=== PATIENT | male | born 1975 | race Caucasian/White ===

== ENCOUNTER 2022-12-11 16:09 | Inpatient (IN) | payer OTHER, SELFPAY ==
[~2022-12-11 16:09] MED LIST: Iopamidol 370 76% 100 ML VIAL ONE
[2022-12-11] MEDS ORDERED: Heparin 10,000 UNITS/ 10 ML VIAL ONE (16:13)
[2022-12-11] MEDS ORDERED: Heparin 25,000 UNITS/D5W 500 ml bag ONE (16:25)
[2022-12-11 16:27] LABS: #Eosinphils 0.1 thou/uL (0.0-0.7); #Monocytes 0.6 thou/uL (0.11-0.59); #Neutrophils 5.7 thou/uL (1.40-6.50); %Basophils 0.4 % (0.0-1.0); %Eosinophils 0.9 % (0.0-10.0); %Lymphocytes 33.6 % (21.0-51.0); %Monocytes 6.5 % (0.0-10.0); %Neutrophils 58.2 % (42.0-75.0); Hemoglobin 14.5 g/dL (14.0-18.0); Mean Corpuscular HGB CONC 34.9 g/dL (32.0-36.0); Mean Corpuscular Hemoglobin 29.8 pg (27.0-31.0); Mean Corpuscular Volume 85.4 fl (78.0-98.0); Platelet Count 154 10x3/uL (130-400); RBC Distribution Width 12.4 % (11.5-14.5); Red Blood Cell (RBC) Count 4.87 mill/uL (4.70-6.10); White Blood Cell (WBC) Count 9.7 10x3/uL (4.8-10.8)
[2022-12-11] MEDS ORDERED: Ondansetron PF 4 MG/2 ML Vial ONE (16:33)
[2022-12-11] MEDS ORDERED: Atropine Sulfate 1 mg/10 ml Syringe ONE (16:33)
[2022-12-11 16:40] LABS: INR-International Normal Ratio 1.1; PTT 25.3 sec (22.9-36.1); Prothrombin Time 14.3 sec (12.0-14.7)
[2022-12-11] MEDS ORDERED: PHENYLEPHRINE-NS 100 MCG/ML 10 ML SYRINGE ONE (16:42)
[2022-12-11] MEDS ORDERED: TICAGRELOR 90 MG TABLET ONE (16:48)
[2022-12-11 16:53] LABS: ALT (SGPT) 47 U/L (8-55); AST (SGOT) 40 U/L (5-34); Albumin 4.2 g/dL (3.5-5.0); Alkaline Phosphatase 73 U/L (40-110); Anion Gap 3 mmol/L (10-20); BUN (Urea Nitrogen) 12 mg/dL (8.9-20.6); Bilirubin, Total 0.4 mg/dL (0.2-1.2); Calc. Creatinine Clearance 0 mL/min (70-130); Calcium 8.5 mg/dL (7.8-10.44); Carbon Dioxide 22 mmol/L (22-29); Chloride 111 mmol/L (98-107); Estimated GFR 97; Globulin 2.9 g/dL (2.4-3.5); Glucose 314 mg/dL (70-105); Potassium 3.7 mmol/L (3.5-5.1); Protein, Total 7.1 g/dL (6.0-8.3); Sodium 132 mmol/L (136-145)
[2022-12-11] MEDS ORDERED: Tirofiban-0.9% Sodium Chloride 250 ML ONE (17:02)
[2022-12-11 18:45] LABS: Acetaminophen Less than 10 mcg/mL (10.0-30.0); Alcohol Less than 10.0 mg/dL (Less than 10); Salicylate Less than 8.0 mg/dL (15.0-30.0)
[2022-12-11 18:50] VITALS: BMI 27.2
[2022-12-11] MEDS ORDERED: Morphine 4 MG/ML VIAL SLOW IVP PRN (18:53)
[2022-12-11] MEDS ORDERED: Morphine 2 MG/ML VIAL SLOW IVP PRN (18:53)
[2022-12-11] MEDS ORDERED: Sodium Chloride 0.9% 1,000 ML IV SCH (18:53)
[2022-12-11] MEDS ORDERED: Nitroglycerin 0.4 MG TAB (25 Tab Bottle) SL PRN (18:53)
[2022-12-11] MEDS ORDERED: Tirofiban-0.9% Sodium Chloride 250 ML IVPB SCH (18:53)
[2022-12-11] MEDS ORDERED: DOPamine 400 MG/D5W 250 ML 250 ML IVPB SCH (19:00)
[2022-12-11] MEDS ORDERED: Glucagon 1 MG/ML KIT IM PRN (19:24)
[2022-12-11] MEDS ORDERED: Dextrose 50% Abboject 50 ML SYRINGE SLOW IVP PRN (19:24)
[2022-12-11] MEDS ORDERED: Dextrose 5% in Water 1,000 ML IV PRN (19:24)
[2022-12-11] MEDS ORDERED: Electrolyte Replacement Protocol 1 EACH FS ONE (19:41)
[2022-12-11] MEDS ORDERED: Electrolyte Replacement Protocol FS PRN (19:45)
[2022-12-11 21:08] LABS: Troponin I 34.364 ng/mL (< 0.028)
[2022-12-11] MEDS: HumaLOG 300 UNITS/3 ML VIAL SC PRN (21:48)
[2022-12-12 01:52] LABS: Troponin I 82.669 ng/mL (< 0.028)
[2022-12-12 03:41] LABS: Amphetamine Not Detected (NotDetected); Barbiturates Screen Not Detected (NotDetected); Benzodiazepine Screen Not Detected (NotDetected); Cocaine Metabolite Screen Not Detected (NotDetected); Methadone Not Detected (NotDetected); Methamphetamine Detected (NotDetected); Opiate Screen Not Detected (NotDetected); Oxycodone Screen Not Detected (NotDetected); Phencyclidine (PCP) Not Detected (NotDetected); THC/Cannabinoid Screen Not Detected (NotDetected); Tricyclic Screen Not Detected (NotDetected)
[2022-12-12 04:21] LABS: #Monocytes 0.5 thou/uL (0.11-0.59); #Neutrophils 7.1 thou/uL (1.40-6.50); %Basophils 0.3 % (0.0-1.0); %Eosinophils 0.1 % (0.0-10.0); %Lymphocytes 18.3 % (21.0-51.0); %Monocytes 5.6 % (0.0-10.0); %Neutrophils 75.2 % (42.0-75.0); Hemoglobin 14.3 g/dL (14.0-18.0); Mean Corpuscular HGB CONC 34.1 g/dL (32.0-36.0); Mean Corpuscular Volume 87.8 fl (78.0-98.0); Mean Platelet Volume 12.1 fL (7.4-10.4); Platelet Count 151 10x3/uL (130-400); RBC Distribution Width 12.6 % (11.5-14.5); Red Blood Cell (RBC) Count 4.77 mill/uL (4.70-6.10); White Blood Cell (WBC) Count 9.5 10x3/uL (4.8-10.8)
[2022-12-12 04:28] LABS: Hemoglobin A1c 10.6 % (4.0-6.0)
[2022-12-12 04:50] LABS: ALT (SGPT) 56 U/L (8-55); AST (SGOT) 181 U/L (5-34); Albumin 3.9 g/dL (3.5-5.0); Alkaline Phosphatase 71 U/L (40-110); Anion Gap 16 mmol/L (10-20); BUN (Urea Nitrogen) 10 mg/dL (8.9-20.6); Bilirubin, Total 0.5 mg/dL (0.2-1.2); Calc. Creatinine Clearance 154 mL/min (70-130); Calcium 8.1 mg/dL (7.8-10.44); Carbon Dioxide 19 mmol/L (22-29); Cardiac Risk 3.7 (Less than 4.5); Chloride 107 mmol/L (98-107); Cholesterol 123 mg/dl (< 200 Desired); Estimated GFR 112; Globulin 2.7 g/dL (2.4-3.5); Glucose 212 mg/dL (70-105); HDL Cholesterol 33 mg/dL (>60 Neg Risk); LDL Cholesterol, Calculated 52 mg/dL; Magnesium 1.9 mg/dL (1.6-2.6); Potassium 3.5 mmol/L (3.5-5.1); Protein, Total 6.6 g/dL (6.0-8.3); Sodium 138 mmol/L (136-145); Triglycerides 191 mg/dL (Less than 150)
[2022-12-12] MEDS: HumaLOG 300 UNITS/3 ML VIAL SC PRN ×3 (05:08→16:58)
[2022-12-12] MEDS ORDERED: Potassium Chloride 20 MEQ TAB PO SCH (08:00)
[2022-12-12 09:44] LABS: Critical Call Chem Troponin I RESULT DECREASING; Troponin I 43.805 ng/mL (< 0.028)
[2022-12-12] MEDS: Clopidogrel Bisulfate 75 MG TAB PO SCH (10:44)
[2022-12-12] MEDS: Aspirin Chewable 81 MG TAB PO SCH (10:44)
[2022-12-12 15:54] LABS: Potassium 3.7 mmol/L (3.5-5.1)
[2022-12-12] MEDS ORDERED: Communication Order-Pharmacy FS SCH (19:30)
[2022-12-12] MEDS: Rosuvastatin 20 MG TAB PO SCH (22:08)
[2022-12-13] MEDS: HumaLOG 300 UNITS/3 ML VIAL SC PRN (00:22)
[2022-12-13 04:52] LABS: ALT (SGPT) 40 U/L (8-55); AST (SGOT) 60 U/L (5-34); Albumin 3.5 g/dL (3.5-5.0); Alkaline Phosphatase 67 U/L (40-110); Anion Gap 11 mmol/L (10-20); BUN (Urea Nitrogen) 17 mg/dL (8.9-20.6); Bilirubin, Total 0.4 mg/dL (0.2-1.2); Calc. Creatinine Clearance 139 mL/min (70-130); Calcium 8.4 mg/dL (7.8-10.44); Carbon Dioxide 21 mmol/L (22-29); Chloride 107 mmol/L (98-107); Estimated GFR 109; Globulin 2.5 g/dL (2.4-3.5); Glucose 287 mg/dL (70-105); Potassium 3.8 mmol/L (3.5-5.1); Sodium 135 mmol/L (136-145)
[2022-12-13] MEDS ORDERED: Sodium Chloride 0.9% 1,000 ML IV SCH ×2 (06:00→09:53)
[2022-12-13] MEDS ORDERED: Lidocaine 1% (PF) 30 ML VIAL ONE (07:52)
[2022-12-13] MEDS ORDERED: Heparin 10,000 UNITS/ 10 ML VIAL ONE (07:52)
[2022-12-13] MEDS ORDERED: Midazolam HCl 2 mg/2 ml Vial ONE (07:54)
[2022-12-13] MEDS ORDERED: fentaNYL 50 mcg/mL 1 mL Vial ONE (07:55)
[2022-12-13] MEDS ORDERED: Bivalirudin 250 MG VIAL ONE (08:59)
[2022-12-13] MEDS: Clopidogrel Bisulfate 75 MG TAB PO SCH ×2 (09:26→10:51)
[2022-12-13] MEDS: Aspirin Chewable 81 MG TAB PO SCH (09:26)
[2022-12-13] MEDS ORDERED: Clopidogrel Bisulfate 75 MG TAB ONE (09:28)
[2022-12-13] MEDS ORDERED: Iopamidol 370 76% 100 ML VIAL ONE (09:59)
[2022-12-13] MEDS ORDERED: Morphine 4 MG/ML VIAL ONE (12:57)
[2022-12-13] MEDS ORDERED: Insulin Regular 300 UNITS/3 ML VIAL SC PRN ×2 (18:00)
[2022-12-13] MEDS: Rosuvastatin 20 MG TAB PO SCH (21:24)
[2022-12-14 05:13] LABS: #Eosinphils 0.2 thou/uL (0.0-0.7); #Monocytes 0.7 thou/uL (0.11-0.59); #Neutrophils 4.6 thou/uL (1.40-6.50); %Basophils 0.3 % (0.0-1.0); %Eosinophils 1.7 % (0.0-10.0); %Monocytes 7.4 % (0.0-10.0); %Neutrophils 49.2 % (42.0-75.0); Hemoglobin 12.5 g/dL (14.0-18.0); Mean Corpuscular HGB CONC 34.1 g/dL (32.0-36.0); Mean Corpuscular Hemoglobin 29.8 pg (27.0-31.0); Mean Corpuscular Volume 87.6 fl (78.0-98.0); Mean Platelet Volume 11.7 fL (7.4-10.4); Platelet Count 145 10x3/uL (130-400); RBC Distribution Width 12.6 % (11.5-14.5); Red Blood Cell (RBC) Count 4.19 mill/uL (4.70-6.10); White Blood Cell (WBC) Count 9.3 10x3/uL (4.8-10.8)
[2022-12-14 05:38] LABS: ALT (SGPT) 32 U/L (8-55); AST (SGOT) 37 U/L (5-34); Albumin 3.5 g/dL (3.5-5.0); Alkaline Phosphatase 63 U/L (40-110); Anion Gap 11 mmol/L (10-20); BUN (Urea Nitrogen) 11 mg/dL (8.9-20.6); Bilirubin, Total 0.4 mg/dL (0.2-1.2); Calc. Creatinine Clearance 156 mL/min (70-130); Calcium 8.2 mg/dL (7.8-10.44); Carbon Dioxide 24 mmol/L (22-29); Chloride 106 mmol/L (98-107); Estimated GFR 112; Globulin 2.6 g/dL (2.4-3.5); Glucose 153 mg/dL (70-105); Potassium 3.6 mmol/L (3.5-5.1); Protein, Total 6.1 g/dL (6.0-8.3); Sodium 137 mmol/L (136-145)
[2022-12-14] MEDS ORDERED: Aspirin 81 mg Enteric Coated Tablet PO SCH (09:00)
[2022-12-14] MEDS: Clopidogrel Bisulfate 75 MG TAB PO SCH (09:16)
[2022-12-14 10:45] VITALS: TEMP 98
[2022-12-14 12:02] VITALS: BP 102/65
== END 2022-12-14 12:14 | disposition home or self-care (01) | DRG 247 ==
LOC: ERS 16:09 → CCL 16:25 → CCU 17:25 → 2NO 12-12 18:15
PROVIDERS: ADMIT Internal Medicine Cardiovascular Disease; ATTEND Internal Medicine Cardiovascular Disease
PROC: 027034Z Dilation of Coronary Artery, One Artery with Drug-eluting Intraluminal Device, Percutaneous Approach (ICD-10-PCS; principal; 2022-12-11)
PROC: 4A023N7 Measurement of Cardiac Sampling and Pressure, Left Heart, Percutaneous Approach (ICD-10-PCS; 2022-12-11)
PROC: B2111ZZ Fluoroscopy of Multiple Coronary Arteries using Low Osmolar Contrast (ICD-10-PCS; 2022-12-11)
PROC: B2151ZZ Fluoroscopy of Left Heart using Low Osmolar Contrast (ICD-10-PCS; 2022-12-11)
PROC: 027135Z Dilation of Coronary Artery, Two Arteries with Two Drug-eluting Intraluminal Devices, Percutaneous Approach (ICD-10-PCS; 2022-12-13)
PROC: 4A023N7 Measurement of Cardiac Sampling and Pressure, Left Heart, Percutaneous Approach (ICD-10-PCS; 2022-12-13)
PROC: B2111ZZ Fluoroscopy of Multiple Coronary Arteries using Low Osmolar Contrast (ICD-10-PCS; 2022-12-13)
PROC: B2151ZZ Fluoroscopy of Left Heart using Low Osmolar Contrast (ICD-10-PCS; 2022-12-13)
DX: I21.19 ST elevation (STEMI) myocardial infarction involving other coronary artery of inferior wall (principal); E87.1 Hypo-osmolality and hyponatremia; I10 Essential (primary) hypertension; E78.00 Pure hypercholesterolemia, unspecified; I25.10 Atherosclerotic heart disease of native coronary artery without angina pectoris; E11.65 Type 2 diabetes mellitus with hyperglycemia; Z87.891 Personal history of nicotine dependence; Z95.1 Presence of aortocoronary bypass graft; Z79.84 Long term (current) use of oral hypoglycemic drugs; Z79.899 Other long term (current) drug therapy; F15.10 Other stimulant abuse, uncomplicated
CPT/HCPCS: 36415; 36416; 80053; 80061; 80306; 80307; 83036; 83735; 84443; 84484; 85025; 85347; 85610; 85730; 92928; 92929; 93005; 93010; 93306; 93454; 93458; 93798; 96374; 96376; 99152; 99153; C1725; C1769; C1874; C1876; C1887; C9600; C9601; J0461; J0583; J1644; J1815; J2001; J2250; J2270; J2272; J2405; J3010; J3246; J7050; Q9967